=== PATIENT | male | born 1955 | race Caucasian/White ===

== ENCOUNTER 2020-08-17 12:17 | Inpatient (IN) | payer BC ==
[~2020-08-17] VITALS: Ht 182.9 cm; Wt 107.8 kg
[~2020-08-17 12:17] MED LIST: AMLODIPINE; CARV PO; CARVEDILOL; ENOXAPARIN; LOS; [UNRECOGNIZED DRUG - OTHER]; amlodipine; olmesartan; oxycodone; trazodone
--- NOTE | 2020-08-17 12:42 | NUR ---
first contact with pt. pt c/o lower back pain and left leg pain. pt had sx in april 2020. pt's aox4. resps even and unlabored. pt denies any other sx. bp/spo2 monitors in place. call light within reach.
[2020-08-17] MEDS ORDERED: SODIUM CHLORIDE 0.9% 1,000ML IVBOLUS ONE (13:00)
[2020-08-17] MEDS ORDERED: HYDROmorphone 1 MG/ML, 1ML INJ IVPush PRN (13:00)
[2020-08-17] MEDS ORDERED: ONDANSETRON 2MG/ML, 2ML IVPush ONE (13:00)
[2020-08-17] MEDS ORDERED: SODIUM CHLORIDE FLUSH 10ML SYR IVF ONE (13:00)
[2020-08-17] MEDS ORDERED: HYDROmorphone 1 MG/ML, 1ML INJ ONE (13:05)
[2020-08-17] MEDS ORDERED: ONDANSETRON 2MG/ML, 2ML ONE (13:05)
[2020-08-17 13:17] LABS: HCT (SEDRATE) 25.7 % (39.2-51.8)
[2020-08-17 13:18] LABS: BASOPHILS # (AUTO) 0.01 x10^3/uL (0-0.1); BASOPHILS % (AUTO) 0 % (0-1); EOSINOPHILS # (AUTO) 0.16 x10^3/uL (0-0.4); EOSINOPHILS % (AUTO) 3 % (1-7); LYMPHOCYTES # (AUTO) 0.71 x10^3/uL (1-3.4); LYMPHOCYTES % (AUTO) 11 % (22-44); MD NO; MEAN CORPUSCULAR HEMOGLOBIN 27.1 pg (27.5-34.5); MEAN CORPUSCULAR HGB CONC 31.4 g/dL (33.2-36.2); MONOCYTES # (AUTO) 0.66 x10^3/uL (0.2-0.8); MONOCYTES % (AUTO) 11 % (2-9); NEUTROPHILS # (AUTO) 4.71 x10^3/uL (1.8-6.8); NEUTROPHILS % (AUTO) 75 % (42-75); PLATELET COUNT 524 x10^3/uL (130-400); RED BLOOD COUNT 2.98 x10^6/uL (4.38-5.82); RED CELL DISTRIBUTION WIDTH 18.2 % (9.4-14.8)
--- NOTE | 2020-08-17 13:21 | NUR ---
piv est on r forearm with no complications. pt medicated per emar. ns infusing at this time. pt tolerated well.
[2020-08-17 13:31] LABS: ALANINE AMINOTRANSFERASE 43 U/L (12-78); ALBUMIN 1.9 g/dL (3.4-5.0); ANION GAP 2 mmol/L (5-15); CALCIUM 8.9 mg/dL (8.5-10.1); CHLORIDE 100 mmol/L (98-107); CREATININE 1.27 mg/dL (0.7-1.3)
[2020-08-17 13:36] LABS: ALKALINE PHOSPHATASE 212 U/L (45-117); BILIRUBIN,TOTAL 0.3 mg/dL (0.2-1.0); C-REACTIVE PROTEIN, QUANT 5.11 mg/dL (0.02-0.49); TOTAL PROTEIN 7.4 g/dL (6.4-8.2)
[2020-08-17] MEDS ORDERED: GABA600T7 PO (14:02)
--- NOTE | 2020-08-17 14:10 | NUR ---
pt resting in [facility]. pt's aox4. resps even and unlabored. water provided per request.
[2020-08-17 14:15] LABS: SEDIMENTATION RATE > 120 mm/hr (0-10)
[2020-08-17] MEDS ORDERED: LIDODERM 5% PATCH TD PRN (15:00)
[2020-08-17] MEDS ORDERED: ONDANSETRON ODT 4 MG PO PRN (15:00)
[2020-08-17] MEDS ORDERED: ONDANSETRON 2MG/ML, 2ML IVPush PRN (15:00)
[2020-08-17] MEDS ORDERED: MELATONIN 5 MG TABLET PO PRN (15:00)
[2020-08-17] MEDS ORDERED: BUTALB/APAP/CAFFEINE 50MG/325MG/40MG PO PRN (15:00)
[2020-08-17] MEDS ORDERED: LABETALOL 5MG/ML, 20ML IVPush PRN (15:00)
[2020-08-17] MEDS ORDERED: hydrALAzine 20 MG/ML, 1ML IVPush PRN (15:00)
[2020-08-17] MEDS ORDERED: BACLOFEN 10 MG TABLET PO PRN (15:00)
--- NOTE | 2020-08-17 15:20 | NUR ---
report given to nataliia buchanan. all questions answered.
[2020-08-17 16:27] VITALS: BP 132/68
[2020-08-17] MEDS: D5%-0.45NACL+KCL 20MEQ 1,000 ML IV SCH (16:45)
[2020-08-17] MEDS: HYDROmorphone 2 MG/ML, 1ML IVPush PRN ×2 (20:05→20:32)
[2020-08-17 20:21] VITALS: BP 125/75
[2020-08-17] MEDS: OXYcodone IR 5MG TABLET PO PRN (23:35)
[2020-08-17] MEDS: ACETAMINOPHEN 325 MG TABLET PO PRN (23:36)
[2020-08-18 00:52] VITALS: BP 112/67
[2020-08-18] MEDS: D5%-0.45NACL+KCL 20MEQ 1,000 ML IV SCH (01:54)
[2020-08-18] MEDS: ACETAMINOPHEN 325 MG TABLET PO PRN ×2 (03:43→09:37)
[2020-08-18] MEDS: OXYcodone IR 5MG TABLET PO PRN ×2 (03:43→09:37)
[2020-08-18 04:52] LABS: BASOPHILS # (AUTO) 0.02 x10^3/uL (0-0.1); BASOPHILS % (AUTO) 0 % (0-1); EOSINOPHILS # (AUTO) 0.21 x10^3/uL (0-0.4); EOSINOPHILS % (AUTO) 4 % (1-7); LYMPHOCYTES # (AUTO) 1.03 x10^3/uL (1-3.4); LYMPHOCYTES % (AUTO) 20 % (22-44); MD NO; MEAN CORPUSCULAR HEMOGLOBIN 28.1 pg (27.5-34.5); MEAN CORPUSCULAR HGB CONC 32.4 g/dL (33.2-36.2); MEAN PLATELET VOLUME 7.6 fL (7.4-10.4); MONOCYTES % (AUTO) 17 % (2-9); NEUTROPHILS % (AUTO) 58 % (42-75); PLATELET COUNT 483 x10^3/uL (130-400); RED BLOOD COUNT 2.95 x10^6/uL (4.38-5.82); RED CELL DISTRIBUTION WIDTH 18.4 % (9.4-14.8)
[2020-08-18 05:02] LABS: ANION GAP 2 mmol/L (5-15); CHLORIDE 102 mmol/L (98-107)
[2020-08-18 05:05] LABS: CREATININE 1.19 mg/dL (0.7-1.3)
[2020-08-18] MEDS: HYDROmorphone 2 MG/ML, 1ML IVPush PRN (06:35)
[2020-08-18 06:50] VITALS: BP 107/62
[2020-08-18] MEDS: SENNA/DOCUSATE TABLET PO SCH (09:36)
[2020-08-18] MEDS ORDERED: CHLORHEXIDINE 15 ML UDC MM ONE (12:00)
[2020-08-18] MEDS ORDERED: CHLORHEXIDINE 15 ML UDC ONE (12:00)
[2020-08-18] MEDS ORDERED: BUPIVACAINE/PF 0.25% ONE (13:46)
[2020-08-18] MEDS ORDERED: EPINEPHRINE 1 MG/ML, 1ML ONE (13:46)
[2020-08-18] MEDS ORDERED: BACITRACIN 50,000 UNIT ONE (13:46)
[2020-08-18] MEDS ORDERED: FENTANYL PF 250 MCG/5ML ONE (13:50)
[2020-08-18] MEDS ORDERED: SUGAMMADEX 200 MG/2 ML IVPush ONE (13:53)
[2020-08-18] MEDS ORDERED: VANCOMYCIN 1,000 MG ONE (14:14)
[2020-08-18] MEDS ORDERED: PROPOFOL 10 MG/ML, 20ML ONE ×2 (14:16)
[2020-08-18] MEDS ORDERED: ROCURONIUM 10 MG/ML,10ML ONE (14:16)
[2020-08-18] MEDS ORDERED: GLYCOPYRROLATE 0.2MG/1ML, 5ML ONE ×2 (14:16)
[2020-08-18] MEDS ORDERED: EPHEDRINE 50 MG/ML, 1ML ONE (14:16)
[2020-08-18] MEDS ORDERED: CEFAZOLIN 1,000 MG ONE ×2 (14:17)
[2020-08-18] MEDS ORDERED: ONDANSETRON 2MG/ML, 2ML ONE (14:51)
[2020-08-18] MEDS ORDERED: NEOSPORIN OINT. PKT 1 PACKET ONE (15:13)
[2020-08-18] MEDS ORDERED: FENTANYL PF 100 MCG/2ML ONE ×2 (15:24→15:41)
[2020-08-18] MEDS ORDERED: HYDROmorphone 1 MG/ML, 1ML INJ ONE (15:25)
[2020-08-18] MEDS ORDERED: OXYcodone 5 MG/5 ML ORAL.SOL UDC ONE (15:25)
[2020-08-18] MEDS ORDERED: OXYcodone 5 MG/5 ML ORAL.SOL UDC PO PRN (15:30)
[2020-08-18] MEDS ORDERED: PROMETHAZINE 25 MG/ML, 1ML IVPush PRN (15:30)
[2020-08-18] MEDS ORDERED: ACETAMINOPHEN 325 MG TABLET PO PRN (15:30)
[2020-08-18] MEDS ORDERED: MEPERIDINE/PF 25MG/0.5ML IVPush PRN (15:30)
[2020-08-18] MEDS: FENTANYL PF 100 MCG/2ML IV PRN ×4 (15:31→15:57)
[2020-08-18] MEDS: HYDROmorphone 1 MG/ML, 1ML INJ IVPush PRN ×5 (15:39→16:03)
[2020-08-18] MEDS ORDERED: HYDROmorphone 2 MG/ML, 1ML ONE (15:42)
[2020-08-18] MEDS ORDERED: MEPERIDINE/PF 25MG/ML,1ML ONE (16:12)
[2020-08-18] MEDS ORDERED: HYDROmorphone PCA 30 MG/30 ML IV PRN ×2 (16:30→18:00)
[2020-08-18 17:00] LABS: HCT (SEDRATE) 23.8 % (39.2-51.8)
[2020-08-18 17:14] LABS: C-REACTIVE PROTEIN, QUANT 4.91 mg/dL (0.02-0.49)
[2020-08-18 17:15] VITALS: BP 107/62
[2020-08-18] MEDS ORDERED: MORPHINE SULFATE 4 MG/ML, 1ML IVPush PRN (18:00)
[2020-08-18 18:52] VITALS: BP 118/71
[2020-08-18 19:02] LABS: SEDIMENTATION RATE > 120 mm/hr (0-10)
[2020-08-18] MEDS: NS + 20MEQ KCL 1,000 ML IV SCH (20:39)
[2020-08-18] MEDS: DAPTOMYCIN 800 MG in SODIUM CHLORIDE 0.9% 100 ML IV SCH (20:39)
[2020-08-18] MEDS: MEROPENEM 1 GM in SODIUM CHLORIDE 0.9% 100 ML IV SCH (21:38)
[2020-08-19 00:29] VITALS: BP 131/77
[2020-08-19 04:12] VITALS: BP 94/55
[2020-08-19 04:34] LABS: BASOPHILS # (AUTO) 0.05 x10^3/uL (0-0.1); BASOPHILS % (AUTO) 1 % (0-1); EOSINOPHILS # (AUTO) 0.13 x10^3/uL (0-0.4); EOSINOPHILS % (AUTO) 2 % (1-7); LYMPHOCYTES # (AUTO) 0.68 x10^3/uL (1-3.4); LYMPHOCYTES % (AUTO) 12 % (22-44); MD NO; MEAN CORPUSCULAR HEMOGLOBIN 28.1 pg (27.5-34.5); MEAN CORPUSCULAR HGB CONC 32.6 g/dL (33.2-36.2); MEAN PLATELET VOLUME 7.5 fL (7.4-10.4); MONOCYTES # (AUTO) 0.69 x10^3/uL (0.2-0.8); MONOCYTES % (AUTO) 12 % (2-9); NEUTROPHILS # (AUTO) 4.39 x10^3/uL (1.8-6.8); NEUTROPHILS % (AUTO) 74 % (42-75); PLATELET COUNT 446 x10^3/uL (130-400); RED BLOOD COUNT 2.74 x10^6/uL (4.38-5.82); RED CELL DISTRIBUTION WIDTH 17.9 % (9.4-14.8)
[2020-08-19 04:41] LABS: ANION GAP 3 mmol/L (5-15); CALCIUM 8.1 mg/dL (8.5-10.1); CHLORIDE 106 mmol/L (98-107); CREATININE 1.18 mg/dL (0.7-1.3)
[2020-08-19] MEDS: MEROPENEM 1 GM in SODIUM CHLORIDE 0.9% 100 ML IV SCH ×3 (05:28→21:55)
[2020-08-19] MEDS: NS + 20MEQ KCL 1,000 ML IV SCH (06:00)
[2020-08-19] MEDS: SENNA/DOCUSATE TABLET PO SCH (07:45)
[2020-08-19 08:00] VITALS: BP 118/75
[2020-08-19] MEDS ORDERED: MEPERIDINE/PF 50 MG/ML IM PRN (09:00)
[2020-08-19] MEDS ORDERED: HYDROmorphone PCA 30 MG/30 ML IV PRN (09:00)
[2020-08-19] MEDS: DIAZEPAM 5 MG TABLET PO PRN (09:15)
[2020-08-19] MEDS: METHOCARBAMOL 750 MG TABLET PO SCH ×3 (11:06→21:56)
[2020-08-19 14:14] VITALS: BP 125/75
[2020-08-19 19:41] VITALS: BP 113/67
[2020-08-19] MEDS: KETOROLAC 30 MG/1 ML IVPush PRN (20:49)
[2020-08-19] MEDS: DAPTOMYCIN 800 MG in SODIUM CHLORIDE 0.9% 100 ML IV SCH (21:04)
[2020-08-20 01:39] VITALS: BP 95/52
[2020-08-20] MEDS: METHOCARBAMOL 750 MG TABLET PO SCH ×4 (05:13→20:22)
[2020-08-20] MEDS: MEROPENEM 1 GM in SODIUM CHLORIDE 0.9% 100 ML IV SCH ×2 (05:13→12:41)
[2020-08-20 06:56] VITALS: BP 129/75
[2020-08-20 07:24] LABS: BASOPHILS # (AUTO) 0.02 x10^3/uL (0-0.1); BASOPHILS % (AUTO) 0 % (0-1); EOSINOPHILS # (AUTO) 0.18 x10^3/uL (0-0.4); EOSINOPHILS % (AUTO) 2 % (1-7); LYMPHOCYTES # (AUTO) 0.61 x10^3/uL (1-3.4); LYMPHOCYTES % (AUTO) 8 % (22-44); MD NO; MEAN CORPUSCULAR HEMOGLOBIN 26.9 pg (27.5-34.5); MEAN CORPUSCULAR HGB CONC 31.2 g/dL (33.2-36.2); MEAN PLATELET VOLUME 6.5 fL (7.4-10.4); MONOCYTES % (AUTO) 12 % (2-9); NEUTROPHILS # (AUTO) 6.02 x10^3/uL (1.8-6.8); NEUTROPHILS % (AUTO) 78 % (42-75); PLATELET COUNT 441 x10^3/uL (130-400); RED BLOOD COUNT 3.04 x10^6/uL (4.38-5.82); RED CELL DISTRIBUTION WIDTH 17.3 % (9.4-14.8)
[2020-08-20 07:32] LABS: ANION GAP 3 mmol/L (5-15); CALCIUM 8.9 mg/dL (8.5-10.1); CHLORIDE 105 mmol/L (98-107); CREATININE 1.02 mg/dL (0.7-1.3)
[2020-08-20] MEDS: SENNA/DOCUSATE TABLET PO SCH (08:20)
[2020-08-20] MEDS ORDERED: HYDROmorphone 2MG TABLET PO PRN (08:30)
[2020-08-20] MEDS: OXYcodone IR 5MG TABLET PO PRN ×3 (10:39→20:23)
[2020-08-20] MEDS ORDERED: BISACODYL 10 MG SUPP PR PRN (12:00)
[2020-08-20] MEDS: POLYETHYLENE GLYCOL 17 GM PACKET PO PRN (12:41)
[2020-08-20 13:04] VITALS: BP 108/65
[2020-08-20] MEDS: DAPTOMYCIN 900 MG in SODIUM CHLORIDE 0.9% 100 ML IV SCH (17:20)
[2020-08-20 19:22] VITALS: BP 114/72
[2020-08-20] MEDS: KETOROLAC 30 MG/1 ML IVPush PRN (20:22)
[2020-08-21 01:31] VITALS: BP 106/64
[2020-08-21] MEDS: KETOROLAC 30 MG/1 ML IVPush PRN ×3 (03:17→21:30)
[2020-08-21] MEDS: OXYcodone IR 5MG TABLET PO PRN ×2 (06:21→13:09)
[2020-08-21] MEDS: METHOCARBAMOL 750 MG TABLET PO SCH ×4 (06:23→21:00)
[2020-08-21 06:43] LABS: BASOPHILS # (AUTO) 0.02 x10^3/uL (0-0.1); BASOPHILS % (AUTO) 0 % (0-1); EOSINOPHILS # (AUTO) 0.35 x10^3/uL (0-0.4); EOSINOPHILS % (AUTO) 6 % (1-7); LYMPHOCYTES # (AUTO) 0.75 x10^3/uL (1-3.4); LYMPHOCYTES % (AUTO) 12 % (22-44); MD NO; MEAN CORPUSCULAR HEMOGLOBIN 27.3 pg (27.5-34.5); MEAN CORPUSCULAR HGB CONC 31.5 g/dL (33.2-36.2); MEAN PLATELET VOLUME 6.9 fL (7.4-10.4); MONOCYTES # (AUTO) 0.91 x10^3/uL (0.2-0.8); MONOCYTES % (AUTO) 14 % (2-9); NEUTROPHILS # (AUTO) 4.38 x10^3/uL (1.8-6.8); NEUTROPHILS % (AUTO) 68 % (42-75); PLATELET COUNT 400 x10^3/uL (130-400); RED BLOOD COUNT 2.68 x10^6/uL (4.38-5.82)
[2020-08-21 06:54] LABS: ANION GAP 4 mmol/L (5-15); CALCIUM 8.7 mg/dL (8.5-10.1); CHLORIDE 107 mmol/L (98-107); CREATININE 1.08 mg/dL (0.7-1.3)
[2020-08-21 07:20] VITALS: BP 108/62
[2020-08-21] MEDS: SENNA/DOCUSATE TABLET PO SCH (08:07)
[2020-08-21] MEDS: POLYETHYLENE GLYCOL 17 GM PACKET PO PRN (08:07)
[2020-08-21] MEDS ORDERED: METH750T2 PO (08:37)
[2020-08-21] MEDS ORDERED: OXYC1TAB18 PO (08:37)
[2020-08-21 13:56] VITALS: BP 126/78
[2020-08-21] MEDS: DAPTOMYCIN 900 MG in SODIUM CHLORIDE 0.9% 100 ML IV SCH (16:37)
[2020-08-21 18:42] VITALS: BP 135/79
[2020-08-22 01:52] VITALS: BP 129/71
[2020-08-22] MEDS: DIAZEPAM 5 MG TABLET PO PRN (02:32)
[2020-08-22] MEDS: OXYcodone IR 5MG TABLET PO PRN ×2 (03:12→09:46)
[2020-08-22] MEDS: METHOCARBAMOL 750 MG TABLET PO SCH ×4 (06:07→21:08)
[2020-08-22] MEDS: KETOROLAC 30 MG/1 ML IVPush PRN ×3 (06:14→21:08)
[2020-08-22 06:33] VITALS: BP 133/75
[2020-08-22] MEDS: SENNA/DOCUSATE TABLET PO SCH (08:41)
[2020-08-22] MEDS: HEPARIN 5,000 UNITS/ML, 1ML SQ SCH ×2 (08:41→16:20)
[2020-08-22] MEDS: POLYETHYLENE GLYCOL 17 GM PACKET PO PRN (08:41)
[2020-08-22] MEDS ORDERED: MAGNESIUM HYDROXIDE 8%, 30ML UDC PO PRN (09:30)
[2020-08-22 13:15] VITALS: BP 127/76
[2020-08-22] MEDS ORDERED: MAGNESIUM CITRATE 300ML ORAL SOL PO PRN (15:00)
[2020-08-22] MEDS: DAPTOMYCIN 900 MG in SODIUM CHLORIDE 0.9% 100 ML IV SCH (16:20)
[2020-08-22 18:49] VITALS: BP 137/78
[2020-08-23] MEDS: HEPARIN 5,000 UNITS/ML, 1ML SQ SCH ×3 (00:15→18:24)
[2020-08-23] MEDS: OXYcodone IR 5MG TABLET PO PRN ×4 (00:49→18:40)
[2020-08-23 01:21] VITALS: BP 130/78
[2020-08-23 04:22] LABS: BASOPHILS # (AUTO) 0.05 x10^3/uL (0-0.1); BASOPHILS % (AUTO) 1 % (0-1); EOSINOPHILS # (AUTO) 0.47 x10^3/uL (0-0.4); EOSINOPHILS % (AUTO) 11 % (1-7); LYMPHOCYTES # (AUTO) 0.71 x10^3/uL (1-3.4); LYMPHOCYTES % (AUTO) 16 % (22-44); MD NO; MEAN CORPUSCULAR HEMOGLOBIN 27.7 pg (27.5-34.5); MEAN CORPUSCULAR HGB CONC 32.7 g/dL (33.2-36.2); MEAN PLATELET VOLUME 7.3 fL (7.4-10.4); MONOCYTES # (AUTO) 0.64 x10^3/uL (0.2-0.8); MONOCYTES % (AUTO) 15 % (2-9); NEUTROPHILS # (AUTO) 2.53 x10^3/uL (1.8-6.8); NEUTROPHILS % (AUTO) 58 % (42-75); PLATELET COUNT 438 x10^3/uL (130-400); RED BLOOD COUNT 2.74 x10^6/uL (4.38-5.82); RED CELL DISTRIBUTION WIDTH 18.3 % (9.4-14.8)
[2020-08-23] MEDS: METHOCARBAMOL 750 MG TABLET PO SCH ×4 (05:27→20:01)
[2020-08-23 07:52] VITALS: BP 126/73
[2020-08-23] MEDS: SENNA/DOCUSATE TABLET PO SCH ×2 (09:00→09:08)
[2020-08-23] MEDS: GABAPENTIN 300 MG CAPSULE PO PRN ×2 (09:11→18:40)
[2020-08-23] MEDS: KETOROLAC 30 MG/1 ML IVPush PRN ×2 (09:11→20:02)
[2020-08-23 12:45] VITALS: BP 144/83
[2020-08-23] MEDS: DAPTOMYCIN 900 MG in SODIUM CHLORIDE 0.9% 100 ML IV SCH (18:14)
[2020-08-23] MEDS ORDERED: GABA300T2 PO (18:48)
[2020-08-23] MEDS ORDERED: AMLO5TAB10 PO (18:48)
[2020-08-23] MEDS ORDERED: OXYC10TA6 PO (18:48)
[2020-08-23] MEDS ORDERED: OLME40TA22 PO (18:48)
[2020-08-23] MEDS ORDERED: CARV12.52 PO (18:48)
[2020-08-23] MEDS ORDERED: ALLO300T PO (18:48)
[2020-08-23 19:24] VITALS: BP 146/87
[2020-08-24 00:55] VITALS: BP 132/81
[2020-08-24] MEDS: HEPARIN 5,000 UNITS/ML, 1ML SQ SCH ×3 (01:20→17:00)
[2020-08-24] MEDS: OXYcodone IR 5MG TABLET PO PRN ×3 (03:39→17:08)
[2020-08-24 05:57] LABS: BASOPHILS % (AUTO) 0 % (0-1); EOSINOPHILS % (AUTO) 11 % (1-7); LYMPHOCYTES % (AUTO) 18 % (22-44); MEAN CORPUSCULAR HEMOGLOBIN 27.1 pg (27.5-34.5); MEAN CORPUSCULAR HGB CONC 32.5 g/dL (33.2-36.2); MEAN PLATELET VOLUME 7.2 fL (7.4-10.4); MONOCYTES % (AUTO) 14 % (2-9); NEUTROPHILS % (AUTO) 57 % (42-75); PLATELET COUNT 382 x10^3/uL (130-400); RED BLOOD COUNT 2.96 x10^6/uL (4.38-5.82); RED CELL DISTRIBUTION WIDTH 18.2 % (9.4-14.8)
[2020-08-24] MEDS: METHOCARBAMOL 750 MG TABLET PO SCH (06:00)
[2020-08-24 06:05] LABS: CHLORIDE 105 mmol/L (98-107)
[2020-08-24 06:21] LABS: % IRON SATURATION 10 % (20-55); ALANINE AMINOTRANSFERASE 62 U/L (12-78); ALBUMIN 1.5 g/dL (3.4-5.0); ALKALINE PHOSPHATASE 257 U/L (45-117); ANION GAP 5 mmol/L (5-15); BILIRUBIN,TOTAL 0.3 mg/dL (0.2-1.0); C-REACTIVE PROTEIN, QUANT 5.57 mg/dL (0.02-0.49); CALCIUM 8.4 mg/dL (8.5-10.1); CREATINE KINASE, TOTAL 50 U/L (39-308); CREATININE 0.97 mg/dL (0.7-1.3); IRON LEVEL 17 mcg/dL (65-175); TOTAL IRON BINDING CAPACITY 167 mcg/dL (250-450); TOTAL PROTEIN 6.6 g/dL (6.4-8.2)
[2020-08-24 06:29] LABS: MD NO
[2020-08-24 06:39] LABS: HCT (SEDRATE) 24.7 % (39.2-51.8)
[2020-08-24 07:15] VITALS: BP 153/89
[2020-08-24] MEDS ORDERED: GABAPENTIN 300 MG CAPSULE PO PRN (08:30)
[2020-08-24] MEDS: SENNA/DOCUSATE TABLET PO SCH (08:40)
[2020-08-24] MEDS ORDERED: AMLODIPINE 5 MG TABLET PO SCH (09:00)
[2020-08-24] MEDS ORDERED: IRON SUCROSE COMPLEX 100MG/5ML IV SCH (09:00)
[2020-08-24 12:40] VITALS: BP 147/84
[2020-08-24] MEDS: DAPTOMYCIN 900 MG in SODIUM CHLORIDE 0.9% 100 ML IV SCH (15:54)
[2020-08-24] MEDS ORDERED: DAPT500V3 IV (16:11)
[2020-08-24] MEDS ORDERED: ONDA4TAB7 PO (16:11)
[2020-08-24] MEDS ORDERED: PROMETHAZINE 25 MG/ML, 1ML ONE (17:17)
[2020-08-24] MEDS ORDERED: PROMETHAZINE 25 MG/ML, 1ML IM PRN (17:30)
== END 2020-08-24 18:24 | disposition home or self-care (01) | DRG 857 ==
LOC: ED 14:04 → EDIP 14:43 → 4NE 15:45
PROVIDERS: ADMIT Family Medicine; ATTEND Family Medicine
PROC: 0JB70ZZ Excision of Back Subcutaneous Tissue and Fascia, Open Approach (ICD-10-PCS; 2020-08-18)
PROC: 02HV33Z Insertion of Infusion Device into Superior Vena Cava, Percutaneous Approach (ICD-10-PCS; principal; 2020-08-20)
PROC: B5181ZA Fluoroscopy of Superior Vena Cava using Low Osmolar Contrast, Guidance (ICD-10-PCS; 2020-08-20)
PROC: B548ZZA Ultrasonography of Superior Vena Cava, Guidance (ICD-10-PCS; 2020-08-20)
DX: T81.41XA Infection following a procedure, superficial incisional surgical site, initial encounter (principal); E87.1 Hypo-osmolality and hyponatremia; Z96.653 Presence of artificial knee joint, bilateral; I10 Essential (primary) hypertension; G89.29 Other chronic pain; D63.8 Anemia in other chronic diseases classified elsewhere; I25.10 Atherosclerotic heart disease of native coronary artery without angina pectoris; E87.5 Hyperkalemia; Z20.828 Contact with and (suspected) exposure to other viral communicable diseases; Y83.8 Other surgical procedures as the cause of abnormal reaction of the patient, or of later complication, without mention of misadventure at the time of the procedure; Z88.0 Allergy status to penicillin; I25.2 Old myocardial infarction; Y92.89 Other specified places as the place of occurrence of the external cause; Z91.041 Radiographic dye allergy status; Z98.1 Arthrodesis status
CPT/HCPCS: 36415; 36573; 71045; 80048; 80053; 82550; 82728; 83540; 83550; 83605; 83735; 85014; 85018; 85025; 85651; 86140; 86850; 86900; 87015; 87040; 87070; 87075; 87077; 87102; 87116; 87176; 87186; 87205; 87206; 87252; 87635; 93005; 93970; 96361; 96374; 96375; 99285; G0378; J0171; J0690; J0878; J1170; J1644; J1756; J1885; J2175; J2185; J2405; J2550; J2704; J3010; J3370; J3480; J3490; C1751; J7030